=== PATIENT | female | born 1965 | race Caucasian/White ===

== ENCOUNTER 2016-04-21 10:41 | Emergency (ER) | payer MEDICAID ==
[2009-06-15 15:51] VITALS: BMI 21.0
== END 2016-04-21 12:54 | disposition home or self-care (01) ==
LOC: D.ER 10:41
DX: S82.62XA Displaced fracture of lateral malleolus of left fibula, initial encounter for closed fracture (principal); W19.XXXA Unspecified fall, initial encounter; Y93.89 Activity, other specified; Y92.019 Unspecified place in single-family (private) house as the place of occurrence of the external cause; F10.10 Alcohol abuse, uncomplicated; E83.42 Hypomagnesemia

== ENCOUNTER 2016-10-07 15:24 | Emergency (ER) | payer MEDICAID ==
[2009-06-15 15:51] VITALS: BMI 21.0
[2016-10-07 16:11] LABS: BASOPHILS 0.3 % (0-2); EOSINOPHILS 0.6 % (0-7); HEMATOCRIT 40.5 % (36.0-48.0); HEMOGLOBIN 13.8 g/dL (12-16); IMMATURE GRANULOCYTES 0.3 % (0-5); LYMPHOCYTES 40.5 % (15-50); MCH 35.4 pg (26.0-34.0); MCHC 34.1 g/dL (31.0-37.0); MCV 103.8 fL (80.0-100.0); MONOCYTES 11.6 % (2-11); NEUTROPHILS 46.7 % (40-80); WBC 3.5 10x3/uL (4.8-10.8)
[2016-10-07 16:18] LABS: PLATELET COUNT 196 10x3/uL (130-400)
[2016-10-07 16:21] LABS: ALBUMIN 3.8 g/dL (3.4-5.0); ALKALINE PHOSPHATASE 81 U/L (46-116); ALT (SGPT) 75 U/L (10-68); BILIRUBIN - TOTAL 0.73 mg/dL (0.2-1.3); CALC OSMOLALITY 271 mosm/kg (275-300); CALCIUM 8.8 mg/dL (8.5-10.1); CARBON DIOXIDE 27.9 mmol/L (21.0-32.0); CHLORIDE - SERUM 99 mmol/L (98-107); CREATININE - SERUM 0.8 mg/dL (0.6-1.3); GLUCOSE 89 mg/dL (74-106); POTASSIUM - SERUM 3.3 mmol/L (3.5-5.1); PROTEIN - SERUM 9.3 g/dL (6.4-8.2); SODIUM 138 mmol/L (136-145); UREA NITROGEN 5 mg/dL (7-18); eGFR NON AFRICAN AMERICAN 80 mL/min (90-120)
[2016-10-07 16:35] LABS: APPEARANCE HAZY (CLEAR); BILIRUBIN NEGATIVE (NEGATIVE); COLOR DK YELLOW (YELLOW); GLUCOSE NEGATIVE (NEGATIVE); KETONE NEGATIVE (NEGATIVE); LEUKOCYTE ESTERASE 1+ (NEGATIVE); NITRITE POSITIVE (NEGATIVE); PROTEIN NEGATIVE (NEGATIVE); UROBILINOGEN NORMAL (NORMAL)
[2016-10-07 16:39] LABS: BACTERIA MANY /hpf (NONE SEEN); HYALINE CAST OCC /lpf (NONE SEEN); RED CELLS - URINE OCC /hpf (0-5)
== END 2016-10-07 19:12 | disposition home or self-care (01) ==
LOC: D.ER 15:24
PROVIDERS: Emergency Medicine
DX: F10.129 Alcohol abuse with intoxication, unspecified (principal); N39.0 Urinary tract infection, site not specified; R53.1 Weakness; R11.10 Vomiting, unspecified; E83.42 Hypomagnesemia

== ENCOUNTER 2018-05-20 22:37 | Emergency (ER) | payer MEDICAID ==
[~2018-05-20] VITALS: Ht 157.5 cm; Wt 46.8 kg
[2018-05-20 22:39] VITALS: Ht 157.5 cm; Wt 46.8 kg
[2018-05-21 00:14] LABS: APPEARANCE CLEAR (CLEAR); BILIRUBIN NEGATIVE (NEGATIVE); COLOR YELLOW (YELLOW); GLUCOSE NEGATIVE (NEGATIVE); KETONE NEGATIVE (NEGATIVE); NITRITE NEGATIVE (NEGATIVE); PROTEIN NEGATIVE (NEGATIVE); UROBILINOGEN NORMAL (NORMAL)
[2018-05-21 01:03] LABS: BASOPHILS 0.3 % (0-2); EOSINOPHILS 0.1 % (0-7); HEMATOCRIT 41.3 % (36.0-48.0); HEMOGLOBIN 14.4 g/dL (12-16); IMMATURE GRANULOCYTES 0.1 % (0-5); LYMPHOCYTES 43.3 % (15-50); MCH 34.1 pg (26.0-34.0); MCHC 34.9 g/dL (31.0-37.0); MCV 97.9 fL (80.0-100.0); MEAN PLATELET VOLUME 8.9 fL (7.4-10.4); MONOCYTES 6.4 % (2-11); NEUTROPHILS 49.8 % (40-80); PLATELET COUNT 278 10x3/uL (130-400); RBC 4.22 10x6/uL (4.00-5.40); RDW 12.5 % (11.5-14.5); WBC 6.9 10x3/uL (4.8-10.8)
[2018-05-21 01:18] LABS: HCG SERUM NEGATIVE (NEGATIVE)
[2018-05-21 01:23] LABS: ALBUMIN 4.2 g/dL (3.4-5.0); ALKALINE PHOSPHATASE 72 U/L (46-116); ALT (SGPT) 28 U/L (10-68); BILIRUBIN - TOTAL 0.28 mg/dL (0.2-1.3); CALC OSMOLALITY 277 mosm/kg (275-300); CALCIUM 9.2 mg/dL (8.5-10.1); CARBON DIOXIDE 25.4 mmol/L (21.0-32.0); CHLORIDE - SERUM 101 mmol/L (98-107); CREATININE - SERUM 0.8 mg/dL (0.6-1.3); GLUCOSE 93 mg/dL (74-106); POTASSIUM - SERUM 3.2 mmol/L (3.5-5.1); PROTEIN - SERUM 10.5 g/dL (6.4-8.2); SODIUM 141 mmol/L (136-145); UREA NITROGEN 5 mg/dL (7-18); eGFR NON AFRICAN AMERICAN 79 mL/min (90-120)
[2018-05-21] MEDS ORDERED: IBUPROFEN800 MG PO (02:28)
[2018-05-21 02:42] VITALS: BP 140/83
[2018-05-22 06:17] LABS: HEPATITIS C ANTIBODY >11.0 (0.0-0.9)
== END 2018-05-21 02:43 | disposition home or self-care (01) ==
LOC: D.ER 22:37
PROVIDERS: Family Medicine
DX: S09.90XA Unspecified injury of head, initial encounter (principal); Y04.2XXA Assault by strike against or bumped into by another person, initial encounter; Y93.89 Activity, other specified; Y92.89 Other specified places as the place of occurrence of the external cause; E87.6 Hypokalemia

== ENCOUNTER 2019-08-11 16:36 | Emergency (ER) | payer MEDICAID ==
[~2019-08-11] VITALS: Ht 157.5 cm; Wt 46.4 kg
[~2019-08-11 16:36] MED LIST: IBUPROFEN800 MG PO
[2019-08-11 16:47] VITALS: Ht 157.5 cm; Wt 46.4 kg
[2019-08-11] MEDS ORDERED: HYDROCODON-ACE1 EAC7 PO (17:40)
[2019-08-11] MEDS ORDERED: AUGMENTIN 875-11 TAB PO (17:40)
[2019-08-11 19:13] VITALS: BP 140/99
== END 2019-08-11 19:14 | disposition home or self-care (01) ==
LOC: D.ER 16:36
DX: S05.42XA Penetrating wound of orbit with or without foreign body, left eye, initial encounter (principal); S02.32XA Fracture of orbital floor, left side, initial encounter for closed fracture; Y04.8XXA Assault by other bodily force, initial encounter; Y93.9 Activity, unspecified; Y92.9 Unspecified place or not applicable; R51 Headache